=== PATIENT | female | born 2000 | race Caucasian/White ===

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

== ENCOUNTER 2022-01-23 11:10 | Emergency (ER) | payer MEDICAID, OTHER ==
[~2022-01-23 11:10] MED LIST: BACTROBAN CREAM15 GM TOP; IBUPROFEN600 MG PO
[2022-01-23 12:54] LABS: HEMOGLOBIN 13.5 gm/dl (12.3-15.3); RED BLOOD COUNT 4.44 M/UL (4.00-5.10); WHITE BLOOD COUNT 5.5 K/UL (4.5-11.0)
[2022-01-23 13:06] LABS: BUN/CREATININE RATIO 11 (0-10)
[2022-01-23] MEDS ORDERED: ONDANSETRON ODT4 MG SL (14:53)
[2022-01-23] MEDS ORDERED: BENTYL 20MG TAB20 MG PO (14:53)
== END 2022-01-23 16:00 | disposition home or self-care (01) ==
LOC: ER1 11:10
PROVIDERS: Physician Assistant
DX: R10.31 Right lower quadrant pain (principal); R10.32 Left lower quadrant pain; R11.0 Nausea; R19.7 Diarrhea, unspecified; R10.813 Right lower quadrant abdominal tenderness; R10.814 Left lower quadrant abdominal tenderness
CPT/HCPCS: 80053; 81001; 83690; 84703; 85025; 87086; 96374; 96375; 99284; J1885; J2405; Q9967